=== PATIENT | female | born 1990 | race Caucasian/White ===

== ENCOUNTER → 2020-08-24 15:06 | Outpatient (CLI) | payer OTHER, SELFPAY ==
--- NOTE | ~2020-08-24 | US_ITS ---
EXAMINATION: US OB transvaginal DATE: 08/24/2020 15:37 INDICATION: Early . TECHNIQUE: Real-time transvaginal pelvic ultrasound was performed. COMPARISON: None. FINDINGS: The uterus measures 9.6 x 4.4 x 5.0 cm. There is an intrauterine gestational sac. A yolk sac is ident ified. The crown rump length measures 4 mm, which correlates with an estimated gestational age of 6 weeks and 1 day(s) (+/-) 4 day(s). heart motion is identified measuring 114 beats per min [place] (bpm) by M-mode Doppler. The ovaries are not visualized. There is no free fluid in the pelvis. IMPRESSION: 1. Single living intrauterine gestation with estimated date of delivery of 04/18/2021. Reviewed, dictated and finalized at location A. IMPRESSION: 1. Single living intrauterine gestation with estimated date of delivery of .
== END ==
PROVIDERS: Visit Provider Obstetrics & Gynecology
DX: Z31.83 Encounter for assisted reproductive fertility procedure cycle (principal)
CPT/HCPCS: 76817

== ENCOUNTER → 2020-11-23 10:24 | Outpatient (CLI) | payer OTHER, SELFPAY ==
--- NOTE | ~2020-11-23 | US_ITS ---
EXAMINATION: US OB /maternal detail DATE: 11/23/2020 11:10 INDICATION: Second trimester anatomic survey TECHNIQUE: Real-time ultrasound of the pelvis was performed. COMPARISON: None. FINDINGS: There is a single living fetus in vertex presentation. The placenta is anterior and 4.6 cm from the i nternal cervical os. heart rate is 130 beats per minute (bpm). cardiac activity and feta l movement are noted. The amniotic fluid index is subjectively normal. There is incomplete evaluation of the heart and kidneys. The following anatomy was identi fied as normal: 3 vessel cord cord insertion urinary bladder stomach spine diaphragm ventricles cisterna magna cerebellum The following biometric data were obtained: Biparietal diameter (BPD): 4.3 cm; head circumference (HC): 15.9 cm; abdominal circumference (AC): 13 .4 cm; femur length (FL): 2.9 cm. These measurements are concordant. Estimated weight is 271 g +/- 40 g, which correlates with the 40th percentile when 04/18/2021 i s used as estimated date of delivery. As single measurements, these parameters are each equal to the following estimated gestational ages w ith ranges of +/- 2 standard deviations: BPD: 19 weeks 1 days ( 17 weeks 3 days - 20 weeks 6 days). HC: 18 weeks 6 days ( 17 weeks 2 days - 20 weeks 2 days). AC: 19 weeks 0 days ( 16 weeks 6 days - 21 weeks 0 days). FL: 19 weeks 1 days ( 17 weeks 3 days - 21 weeks 0 days). estimated gestational age based solely on measurements from this exam is 19 weeks 0 days +/- 1 weeks 2 days. IMPRESSION: 1. Single living fetus in transverse lie. 2. Estimated weight is 271 g +/- 40 g, which correlates with the 40th percentile when is used as estimated date of delivery. 3. Incomplete evaluation of the heart and kidneys. Reviewed, dictated and finalized at location B. IMPRESSION: 1. Single living fetus in transverse lie. 2. Estimated weight is 271 g +/- 40 g, which correlates with the 40th per centile when 04/18/2021 is used as estimated date of delivery. 3. Incomplete evaluation of the heart and kidneys.
== END ==
PROVIDERS: Visit Provider Obstetrics & Gynecology
DX: Z36.9 Encounter for antenatal screening, unspecified (principal); Z3A.19 19 weeks gestation of pregnancy
CPT/HCPCS: 76805

== ENCOUNTER → 2021-01-20 13:47 | Outpatient (CLI) | payer OTHER, SELFPAY ==
--- NOTE | ~2021-01-20 | US_ITS ---
EXAMINATION: US OB follow up DATE: 01/20/2021 14:15 INDICATION: Incomplete anatomy scan, now at the junction of the second third trimester pregnanc y TECHNIQUE: Real-time ultrasound of the pelvis was performed. The interpreting radiologist was not pre sent for the study. COMPARISON: 11/23/2020 FINDINGS: There is a single living fetus in vertex presentation. The placenta is anterior with caudal margin 9 .6 cm from the internal cervical os. heart rate is 139 beats per minute (bpm). The amniotic flu id index is 11.3 cm, which is normal (5th%-95%: 9.5-22.6 cm at 27 weeks estimated gestational age). The heart including four-chamber view and left and right ventricular outflow tracts are normal. Normal kidneys with no hydronephrosis. The following biometric data were obtained: BPD: 6.9 cm -> 27 weeks 6 days Head circumference: 26.2 cm -> 28 weeks 3 days Abdominal circumference: 23.1 cm -> 27 weeks 4 days Femur length: 5.2 cm -> 27 weeks 4 days These measurements are concordant. Head circumference to abdominal circumference ratio: 1.13 (normal range 1.02-1.22). Estimated weight: 1096 g (+/-) 164 g or 2 lbs. 7 oz. (+/-) 6 oz. IMPRESSION: 1. Single living fetus in vertex presentation with heart rate of 139 bpm. 2. Normal amniotic fluid index of 11.3 cm. 3. Estimated weight is 43rd percentile by Hadlock criteria when 04/18/2021 is used as the estim ated date of delivery ([facility]). Please correlate with clinical information or earlier ultrasounds for mo st accurate LOUIS. 4. Normal heart and kidneys. Reviewed, dictated and finalized at location B. IMPRESSION: 1. Single living fetus in vertex presentation with heart rate of 139 bpm. 2. Normal amniotic fluid index of 11.3 cm. 3. Estimated weight is 43rd percentile by Hadlock criteria when 1 is used as the estimated date of delivery ([facility]). Please correlate with clinic al information or earlier ultrasounds for most accurate LOUIS. 4. Normal heart and kidneys.
== END ==
PROVIDERS: Visit Provider Obstetrics & Gynecology
DX: Z36.2 Encounter for other antenatal screening follow-up (principal)
CPT/HCPCS: 76816

== ENCOUNTER → 2021-02-22 13:45 | Outpatient (CLI) | payer OTHER, SELFPAY ==
--- NOTE | ~2021-02-22 | US_ITS ---
EXAMINATION: US OB follow up DATE: 02/22/2021 14:06 INDICATION: Size greater than dates during third trimester TECHNIQUE: Real-time ultrasound of the pelvis was performed. The interpreting radiologist was not pre sent for the study. COMPARISON: 01/20/2021 FINDINGS: There is a single living fetus in vertex presentation. The placenta is fundal/anterior. Fet al cardiac activity and movement are noted. heart rate is 136 beats per minute (bpm). The amniotic fluid index is 13.2 cm which is normal. The following biometric data were obtained: Biparietal diameter (BPD): 8.0 cm; head circumference (HC): 29.6 cm; abdominal circumference (AC): 28 .1 cm; femur length (FL): 6.1 cm. These measurements are concordant. Estimated weight is 1905 g +/- 285 g, which correlates with the 38th percentile when 04/18/2021 is used as estimated date of delivery. As single measurements, these parameters are each equal to the following estimated gestational ages w ith ranges of +/- 2 standard deviations: BPD: 32 weeks 1 days ( 29 weeks 1 days - 35 weeks 2 days). HC: 32 weeks 6 days ( 29 weeks 6 days - 35 weeks 6 days). AC: 32 weeks 1 days ( 29 weeks 2 days - 35 weeks 1 days). FL: 31 weeks 5 days ( 28 weeks 5 days - 34 weeks 4 days). estimated gestational age based solely on measurements from this exam is 32 weeks 2 days +/- 2 weeks 2 days. IMPRESSION: 1. Single living fetus in vertex presentation. 2. Estimated weight is 1905 g +/- 285 g, which correlates with the 38th percentile when 021 is used as estimated date of delivery. Reviewed, dictated and finalized at location A. IMPRESSION: 1. Single living fetus in vertex presentation. 2. Estimated weight is 1905 g +/- 285 g, which correlates with the 38th p ercentile when 04/18/2021 is used as estimated date of delivery.
== END ==
PROVIDERS: Visit Provider Obstetrics & Gynecology Gynecology
DX: Z36.9 Encounter for antenatal screening, unspecified (principal); Z3A.32 32 weeks gestation of pregnancy
CPT/HCPCS: 76816

== ENCOUNTER 2021-03-23 15:50 | Outpatient (CLI) | payer OTHER, SELFPAY ==
[2021-03-23 16:20] VITALS: BP 115/76; PULSE 85
[2021-03-23 16:31] VITALS: BP 114/72; PULSE 89
[2021-03-23 16:40] LABS: Basophils Percent Auto 0.3 % (0.2-1.2); Eosinophils Absolute Auto 0.1 K/mm3 (0-0.3); Eosinophils Percent Auto 0.7 % (0-4.4); Hematocrit 35.6 % (37.0-47.0); Hemoglobin 11.9 g/dL (12.0-15.0); Immature Granulocyte Absolute 0.03 K/mm3 (0.00-0.031); Immature Granulocyte Percent A 0.3 % (0-0.5); Lymphocytes Absolute Auto 1.51 K/mm3 (0.9-3.2); Lymphocytes Percent Auto 13.7 % (18.3-44.2); Mean Corpuscular HGB Conc 33.4 g/dl (32-36); Mean Corpuscular Hemoglobin 27.4 pg (26-34); Mean Corpuscular Volume 81.8 fl (80-100); Mean Platelet Volume 9.8 fl (7.4-10.4); Monocytes Absolute Auto 0.7 K/mm3 (0.1-0.6); Neutrophils Absolute Auto 8.7 K/mm3 (1.3-6.7); Platelet Count Result 281 k/mm3 (150-375); Red Blood Count 4.35 M/mm3 (4.2-5.4); Red Cell Distribution Width 13.3 % (11.5-14.5)
[2021-03-23 16:45] LABS: Add Urine Microscopic? YES; Appearance Urine Cloudy (Clear); Bilirubin Urine Negative (Negative); Blood Urine Negative (Negative); Color Urine Amber (Yellow); Glucose Urine UA Negative (Negative); Ketones Urine Negative (Negative); Leukocyte Esterase Ur Trace LEU/UL (NEGATIVE); Mucus Urine Rare /lpf; Nitrate Urine Negative (Negative); Protein Urine 1+ mg/dL (Negative); Specific Grav Ur 1.027 (1.001-1.035); Squamous Epithelial Cell Urine Few /hpf (Few); WBC Urine 0-3 /hpf (0-3)
[2021-03-23 16:46] VITALS: BP 116/76; PULSE 84
[2021-03-23 16:50] VITALS: BP 116/76; PULSE 84
[2021-03-23 16:57] LABS: Alanine Aminotransferase 40 U/L (4-35); Albumin Level 3.6 g/dL (3.5-5.1); Alkaline Phosphatase 237 U/L (38-126); Anion Gap 8 mmol/L (8-16); Aspartate Amino Transferase 33 U/L (14-36); Bilirubin,Total 0.3 mg/dL (0.2-1.3); Blood Urea Nitrogen 7 mg/dL (7-17); Calcium 9.1 mg/dL (8.4-10.2); Carbon Dioxide 21 mmol/L (22-30); Chloride 107 mmol/L (98-107); Estimated Glomerular Filt Rate > 60; Glucose 91 mg/dL (65-110); Potassium 3.9 mmol/L (3.4-5.0); Sodium 136 mmol/L (137-145); Uric Acid 5.6 mg/dL (2.5-7.5)
[2021-03-23 16:59] LABS: Creatinine Urine 263.3 mg/dL; Total Protein Urine Random 6 mg/dL; Ur Ttl Prot Creatinine Ratio 0.02 mg/mg (0-0.20)
[2021-03-23 17:01] VITALS: BP 111/87; PULSE 83
[2021-03-23 17:16] VITALS: BP 114/79; PULSE 85
[2021-03-24 19:45] LABS: Total Protein Urine Random 9 mg/dL
[2021-03-24 20:12] LABS: Total Protein Urine 24 Hr 81 mg/24hr (28-141); Total Volume 24 Hour Urine 900 ml
[2021-03-24 20:36] LABS: Total Volume 24 Hour Urine 900 ml
[2021-03-24 21:52] LABS: Creatinine 24 Hour Urine 1.6 gm/24 (0.8-1.8); Creatinine Urine 181.8 mg/dL
== END 2021-03-23 18:00 | disposition home or self-care (01) ==
LOC: ANHOBOP 16:04 → ANHOBPP 16:04
PROVIDERS: Visit Provider Obstetrics & Gynecology
DX: O13.9 Gestational [pregnancy-induced] hypertension without significant proteinuria, unspecified trimester (principal); Z3A.00 Weeks of gestation of pregnancy not specified
CPT/HCPCS: 36415; 59025; 80053; 81001; 81050; 82570; 84156; 84550; 85025; 87077; 87086; 87088; 99199

== ENCOUNTER → 2021-03-24 13:49 | Outpatient (CLI) | payer OTHER, SELFPAY ==
--- NOTE | ~2021-03-24 | US_ITS ---
EXAMINATION: US OB follow up EXAM DATE: 03/24/2021 14:12 INDICATION: Size Greater Than Dates. 3rd trimester. TECHNIQUE: Pelvic obstetrical transabdominal sonogram was performed by a technologist. There are mu ltiple grayscale and Doppler images available for interpretation. Comparison is made to prior examina tion from 02/22/2021. FINDINGS: There is a single fetus identified in vertex presentation with a heart rate of 151 beats pe r minute. The placenta is located in the anterior fundal position. There is no sonographic evidence of retroplacental hemorrhage identified. AMNIOTIC FLUID INDEX Quadrant 1: 2.4 cm Quadrant 2: 0.0 cm Quadrant 3: 0.0 cm Quadrant 4: 3.7 cm Amniotic fluid index: 6.1 cm. Oligohydramnios. (The 5th -- 95th percentile range is 7.7-24.9). On prior study 02/22, the EDILBERTO was 13.2 cm. BIOMETRIC DATA: Biparietal diameter (BPD): 8.8 cm ----------------> 35 weeks 5 days. Head circumference (HC): 32.8 cm ----------------> 37 weeks 2 days. Abdominal circumference (AC): 32.5 cm ----------> 36 weeks 3 days. Femur length (FL): 7.3 cm --------------------------> 37 weeks 3 days. These measurements are concordant. HC/AC ratio is 1.01 (The 5th -- 95th percentile range is 0.92-1.06. Estimated weight is 3001 g +/- 450 g. This is the 60th percentile when the currently reported clinical gestation age 36 weeks 3 days, clinical estimated date of delivery ([facility]) 04/18 is used. estimated gestational age based on measurements from this exam is 36 weeks 5 days, with an augusta mated date of delivery ([facility]) 04/16. IMPRESSION: 1. Single fetus in vertex presentation with heart rate 151 beats per minute. 2. Estimated weight of 3001 grams, 60th percentile using the currently reported clinical gesta tion age of 36 weeks 3 days, LOUIS(OPE) 04/18. 3. Oligohydramnios, EDILBERTO 6.1 cm (was 13.2 cm last month). Reviewed, dictated and finalized at location B. IMPRESSION: 1. Single fetus in vertex presentation with heart rate 151 beats per minute. 2. Estimated weight of 3001 grams, 60th percentile using the currently r eported clinical gestation age of 36 weeks 3 days, L[facility]IS([facility]) 04/18. 3. Oligohydramnios, EDILBERTO 6.1 cm (was 13.2 cm last month).
== END ==
PROVIDERS: Visit Provider Nurse Practitioner
DX: O36.63X0 Maternal care for excessive fetal growth, third trimester, not applicable or unspecified (principal); Z3A.36 36 weeks gestation of pregnancy
CPT/HCPCS: 76816

== ENCOUNTER → 2021-03-26 10:47 | Outpatient (CLI) | payer OTHER, SELFPAY ==
--- NOTE | ~2021-03-26 | US_ITS ---
EXAMINATION: US OB limited EXAM DATE: 03/26/2021 11:13 INDICATION: Oligohydramnios, third trimester, not applicable or unspecified . TECHNIQUE: Pelvic obstetrical transabdominal sonogram was performed by a technologist. There are mu ltiple grayscale and Doppler images available for interpretation. Comparison is made to prior examina tion from 03/24/2021. FINDINGS: There is a single fetus identified in vertex presentation with a heart rate of 127 beats pe r minute. The placenta is located in the anterior position. There is no sonographic evidence of retr oplacental hemorrhage identified. AMNIOTIC FLUID INDEX: Obtained twice. Quadrant 1: 3.3 cm Quadrant 2: 0.0 cm Quadrant 3: 4.2 cm Quadrant 4: 1.3 cm Amniotic fluid index: 8.8 cm. Quadrant 1: 3.0 cm Quadrant 2: 0.0 cm Quadrant 3: 3.8 cm Quadrant 4: 2.1 cm Amniotic fluid index: 8.9 cm. (The 5th -- 95th percentile range is 7.7-24.9). IMPRESSION: 1. Single fetus in vertex presentation with heart rate 127 beats per minute. 2. EDILBERTO lower limits of normal at 8.85 centimeters. Reviewed, dictated and finalized at location B.
== END ==
PROVIDERS: Visit Provider Obstetrics & Gynecology
DX: O41.03X0 Oligohydramnios, third trimester, not applicable or unspecified (principal); Z3A.00 Weeks of gestation of pregnancy not specified
CPT/HCPCS: 76815

== ENCOUNTER → 2021-04-01 14:18 | Outpatient (CLI) | payer OTHER, SELFPAY ==
--- NOTE | ~2021-04-01 | US_ITS ---
US OB follow up DATE: 04/01/2021 14:59 INDICATION: Oligohydramnios TECHNIQUE: Real-time imaging and Doppler analysis COMPARISON: None FINDINGS: Live banegas intrauterine gestation, fetus in vertex presentation. movement was doc umented. heart rate of 132 bpm. Anterior placenta, no evidence of placenta previa. Amniotic fluid index measures 9.1 cm. 5th percentile EDILBERTO is 7.5 cm. 95th percentile EDILBERTO is 24.4 cm. Biparietal diameter 8.92 cm; 36 weeks 1 day Head circumference 32.35 cm; 36 weeks 4 days Abdominal circumference 33.70 cm; 37 weeks 4 days Femur length 7.04 cm; 36 weeks 1 day Composite age by [place] formula based upon the current biometrics would be 36 weeks 4 days +/- 2 we eks 4 days with LOUIS of 04/25/2021. (Third trimester ultrasound estimates of gestational age and not o ptimally accurate and should not alter and established gestational age from a lateral left menstrual period or first or second trimester ultrasound estimate.) LOUIS based upon the 08/24/2020 first trimester obstetrical ultrasound examination was 04/18/2021. Estimated weight is 3076 +/- 461 g. Femur length/BPD 78.86, within normal range of 71.0-87.0 Head circumference/abdominal circumference 0.96, within normal range of 0.9 to-1.06 Femur length/abdominal circumference 20.88, within normal range of 20.00-24.00 Femur length/head circumference 21.75, within normal range of 20.50-22.39. IMPRESSION: Low normal amniotic fluid volume; EDILBERTO measures 9.1 cm, slightly above the 5th percentile Reviewed, dictated and finalized at Location A. Reviewed, dictated and finalized at location A. IMPRESSION: Low normal amniotic fluid volume; EDILBERTO measures 9.1 cm, slightly abo ve the 5th percentile
== END ==
PROVIDERS: Visit Provider Obstetrics & Gynecology
DX: O41.03X0 Oligohydramnios, third trimester, not applicable or unspecified (principal); Z3A.36 36 weeks gestation of pregnancy
CPT/HCPCS: 76816

== ENCOUNTER 2021-04-12 04:48 | Inpatient (IN) | payer OTHER, SELFPAY ==
[2021-04-12] VITALS (78 sets, daily range): BP systolic 74–144; BP diastolic 46–112; PULSE 62–178; RESP 18; TEMP 36.2–37.2; O2SAT 98–100; BMI 44.8
[2021-04-12] MEDS: LACTATED RINGERS 1,000 ML 125 ML IV CONT ×3 (05:35→12:26)
[2021-04-12] MEDS: OXYTOCIN 30 UNITS/NS 500 ML 30 UNITS/500 ML BAG IV CONT (05:36)
[2021-04-12] MEDS: ceFAZolin 2 GM/D5W 50 ML 2 GM/50 ML BAG IVPB (05:37)
[2021-04-12 05:44] LABS: Glucose Point of Care 74 mg/dl (65-105)
[2021-04-12 05:49] LABS: Basophils Percent Auto 0.4 % (0.2-1.2); Eosinophils Absolute Auto 0.1 K/mm3 (0-0.3); Eosinophils Percent Auto 1.3 % (0-4.4); Hematocrit 35.2 % (37.0-47.0); Hemoglobin 11.8 g/dL (12.0-15.0); Immature Granulocyte Absolute 0.03 K/mm3 (0.00-0.031); Immature Granulocyte Percent A 0.3 % (0-0.5); Lymphocytes Absolute Auto 1.97 K/mm3 (0.9-3.2); Lymphocytes Percent Auto 19.7 % (18.3-44.2); Mean Corpuscular HGB Conc 33.5 g/dl (32-36); Mean Corpuscular Hemoglobin 26.8 pg (26-34); Mean Platelet Volume 9.9 fl (7.4-10.4); Monocytes Absolute Auto 0.6 K/mm3 (0.1-0.6); Monocytes Percent Auto 5.5 % (2.6-8.5); Neutrophils Absolute Auto 7.3 K/mm3 (1.3-6.7); Neutrophils Percent Auto 72.8 % (45.5-73.1); Platelet Count Result 280 k/mm3 (150-375); Red Cell Distribution Width 13.4 % (11.5-14.5)
[2021-04-12] MEDS: ONDANSETRON INJ 4 MG/2 ML VIAL IV PUSH ×2 (05:52→13:40)
--- NOTE | 2021-04-12 06:19 | LDADM ---
This patient, Chloe Alicea, was admitted to Labor/Delivery/Recovery 102 on 04/12/21 at 04:48. Plans for labor, pain management and were discussed with patient. Patient/family oriented to hospital policies and general routines including ID bracelet, bed and alarms, visiting hours, pain management, procedures, bathroom and other care routines, personal items, smoking policy, room service/diet and guest tray routines, infant security routines, and visiting hours. Patient/Family are encouraged to report perceived risks to care and to ask questions if they do not understand what they are told or what they should do. See OBIX for further documentation.
--- NOTE | 2021-04-12 08:46 | WPDOBADMIT ---
Obstetrics - Admit Note Admission Note: record reviewed. No pertinent additions to the history and/or any subsequent changes in the physical findings that are not consistent with the expected course of the were found. Additions to the history and/or subsequent changes in the physical findings follow. None.Admitted per Dr. Bishop. Requested I AROM. Cervix /-2 anterior. AROM with clear fluid. FHTs reactive.
[2021-04-12 09:48] LABS: Glucose Point of Care 87 mg/dl (65-105)
--- NOTE | 2021-04-12 10:09 | WPDANESEPP ---
Anes - Eval Pre Procedure Procedure: labor pain management Date/Time: 04/12/21 10:09 Surgeon: anna Preop Diagnosis: pain during labor Pre Op Diagnosis: Induction Patient Data Age: 30 Gender: F Height: 1.68 m Weight: 126 kg Last Vital Signs Temp 97.2 F L 04/12/21 06:10 Pulse 84 04/12/21 10:01 BP 144/96 H 04/12/21 10:01 Allergies Allergy/AdvReac Type Severity Reaction Status Date / Time amoxicillin Allergy Intermediate Rash, Verified 03/23/21 15:28 swelling Laboratory Tests 04/12/21 04/12/21 04/12/21 05:17 05:17 05:17 WBC 10.0 K/mm3 K/mm3 (4.5-10.0) RBC 4.40 M/mm3 M/mm3 (4.2-5.4) Hgb 11.8 g/dL L g/dL (12.0-15.0) Hct 35.2 % L % (37.0-47.0) MCV 80.0 fl fl (80-100) MCH 26.8 pg pg (26-34) MCHC 33.5 g/dl g/dl (32-36) RDW 13.4 % % (11.5-14.5) Plt Count 280 k/mm3 k/mm3 (150-375) MPV 9.9 fl fl (7.4-10.4) Immature Gran % (Auto) 0.3 % % (0-0.5) Neut % (Auto) 72.8 % % (45.5-73.1) Lymph % (Auto) 19.7 % % (18.3-44.2) Cowley % (Auto) 5.5 % % (2.6-8.5) Eos % (Auto) 1.3 % % (0-4.4) Baso % (Auto) 0.4 % % (0.2-1.2) Lymph # (Auto) 1.97 K/mm3 K/mm3 (0.9-3.2) Cowley # (Auto) 0.6 K/mm3 K/mm3 (0.1-0.6) Eos # (Auto) 0.1 K/mm3 K/mm3 (0-0.3) Baso # (Auto) 0.0 K/mm3 K/mm3 (0.0-0.1) Abs Immat Gran (auto) 0.03 K/mm3 K/mm3 (0.00-0.031) Absolute Neuts (auto) 7.3 K/mm3 H K/mm3 (1.3-6.7) Absolute Nucleated RBC 0.0 K/mm3 K/mm3 (0.0-0.012) Nucleated RBC % 0.0 % % (0.0-0.2) POC Capillary Glucose RPR Pending Blood Type O Positive Antibody Screen Negative 04/12/21 04/12/21 05:40 09:39 WBC RBC Hgb Hct MCV MCH MCHC RDW Plt Count MPV Immature Gran % (Auto) Neut % (Auto) Lymph % (Auto) Cowley % (Auto) Eos % (Auto) Baso % (Auto) Lymph # (Auto) Cowley # (Auto) Eos # (Auto) Baso # (Auto) Abs Immat Gran (auto) Absolute Neuts (auto) Absolute Nucleated RBC Nucleated RBC % POC Capillary Glucose 74 mg/dl mg/dl 87 mg/dl mg/dl (65-105) (65-105) RPR Blood Type Antibody Screen : gestational age (edc 04/18/21) Patient hx anesthesia problems: none Family hx anesthesia problems: none Results Review: All pre-operative results and documents have been reviewed as part of the pre-operative evaluation. [facility] Family History Family History Mother Diabetes mellitus Father Hypertension Social History Social History Smoking status: Never smoker Second hand tobacco smoke exposure: No Substance use: never Spiritual care concerns: No Exam Day of Procedure 04/12/21 10:09 Patient weight: morbidly obese (bmi 44.8) Neurological: alert and oriented
[2021-04-12 10:11] LABS: Rapid Plasma Reagin Non-Reactive (NonReactive)
[2021-04-12 13:48] LABS: Glucose Point of Care 83 mg/dl (65-105)
[2021-04-12] MEDS: OXYTOCIN 30 UNITS/NS 500 ML 30 UNITS/500 ML BAG 125 UNITS IV CONT (16:01)
[2021-04-12] MEDS: WITCH HAZEL 40 PADS 1 PAD TOPICAL (17:45)
[2021-04-12] MEDS: BENZOCAINE 20% AER SPR (*SP) 56 GM CAN 1 SPRAY TOPICAL (17:45)
--- NOTE | 2021-04-12 18:10 | PC.NURSE ---
Patient transferred to post room #292 per wheelchair. Support person present. Oriented to unit, room, information board, rooming in, admission packet and security measures. Patient verbalizes understanding.
[2021-04-12] MEDS: ACETAMINOPHEN 325 MG TABLET 650 MG PO (19:58)
[2021-04-13 03:23] VITALS: BP 107/76; PULSE 85; RESP 18; TEMP 36.4
[2021-04-13 03:34] LABS: Hematocrit 31.1 % (37.0-47.0); Hemoglobin 10.3 g/dL (12.0-15.0)
--- NOTE | 2021-04-13 07:47 | PM.OBPNVD ---
OB - PN: Subj Subjective Date/time seen: 04/13/21 07:47 Patient comments: no complaints and pain well controlled baby status: doing well OB - PN: Obj Data Labs CBC & Chem 7: 04/13/21 03:00 Labs: Laboratory Results - last 24 hr 04/12/21 04/12/21 04/12/21 05:17 09:39 13:46 Hgb Hct POC Capillary Glucose 87 83 RPR Non-reactive 04/13/21 03:00 Hgb 10.3 L Hct 31.1 L POC Capillary Glucose RPR OB - PN A/P Plan day: 1 Plan: routine care, discharge home, follow up 6 weeks and other (unsure bc) Time Spent With Patient Time: Total time spent is greater than 50% in coordination of care (as documented) at patient's floor/unit and/or counseling patient: Exam : Bimanual exam- vagina & uterus: other (Uterus firm, nt @U)
[2021-04-13] MEDS: ACETAMINOPHEN 325 MG TABLET 650 MG PO ×2 (07:58→20:20)
[2021-04-13] MEDS: DOCUSATE SODIUM 100 MG CAPSULE PO (07:59)
[2021-04-13] MEDS: MULTIVIT/MIN/PREN/FOL AC/IRON TABLET 1 TAB PO (07:59)
[2021-04-13 08:55] VITALS: BP 125/74; PULSE 84; RESP 16; TEMP 36.4; O2SAT 99
--- NOTE | 2021-04-13 08:58 | WPDANLDPN2 ---
Anes-Prog Note L&D Date/Time: 04/13/21 08:58 Comfortable throughout: labor and delivery Neuraxial method: epidural Epidural/Spinal procedure site: clean & non-tender Neuro status: Neuro function grossly intact. Cardiovascular status: normal Respiratory status: normal Airway patency: baseline Mental status: baseline Post-Op hydration status: normal Vital Signs: Last Vital Signs Temp 97.6 F 04/13/21 03:23 Pulse 85 04/13/21 03:23 Resp 18 04/13/21 03:23 BP 107/76 04/13/21 03:23 Pulse Ox 100 04/12/21 11:02 Pain score (VAS): 2 I/O: Intake & Output 04/12/21 04/13/21 04/13/21 23:59 07:59 15:59 Intake Total 500 Output Total 95 Balance 405 Post-procedural complaints: none Patient feedback: Patient satisfied with anesthetic care.
--- NOTE | 2021-04-13 09:35 | PC.NURSE ---
Mother called out for assist with feeding, reporting discomfort with feeding more on left than right. Infant is able to freely thrust tongue past gum ridge and flange both lips. Skin is intact on both nipples, no redness and bruising noted. Reviewed feeding cues, frequencies, duration of feedings, feeding elimination flow sheet, and signs of adequate intake. Demonstrated stimulation techniques to wake for feeding. Assisted with to breast. Reviewed positioning/alignment in cross cradle, holding breast in ?U? hold and guided asymmetrical latch on. Reviewed rational for each. able to latch correctly within a few attempts. Infant nursed eagerly with steady draws and occasional swallowing noted, some pausing noted. Reviewed signs of a correct latch, effective nursing and suck swallow ratio. Suggested mother stimulate while feeding to increase stimulation for milk supply, for increased intake and to assist with maintaining deep latch. would slip to shallow latch causing tenderness. Demonstrated how to adjust latch more deeply while feeding as needed. Mother reports she can feel the difference in latch with no tenderness. Nipple care reviewed of lanolin after feedings, warm compresses as needed. Instructed mother to call out for RN assistance if she is unable to latch infant for feeding or she has discomfort with nursing. Instructed feeding should be initiated three hours from start of last feeding or if feeding cues are noted before. Mother voiced understanding of information shared.
[2021-04-13 12:23] VITALS: BP 111/73; PULSE 92; RESP 18; TEMP 36.4; O2SAT 97
--- NOTE | 2021-04-13 12:30 | PC.NURSE ---
Mother called out for assist with feeding, reporting discomfort with feeding more on left than right. Assisted with to breast. Reviewed positioning/alignment in cross cradle, holding breast in ?U? hold and guided asymmetrical latch on. Reviewed rational for each. Infant able to latch correctly within a few attempts. Infant nursed eagerly with steady draws and occasional swallowing noted, some pausing noted. Reviewed signs of a correct latch, effective nursing and suck swallow ratio. Suggested mother stimulate while feeding to increase stimulation for milk supply, for increased intake and to assist with maintaining deep latch. would slip to shallow latch causing tenderness. Demonstrated how to adjust latch more deeply while feeding as needed. Mother reports she can feel the difference in latch with no tenderness. Nipple care reviewed of lanolin after feedings, warm compresses as needed. Instructed mother to call out for RN assistance if she is unable to latch for feeding or she has discomfort with nursing. Instructed feeding should be initiated three hours from start of last feeding or if feeding cues are noted before. Mother voiced understanding of information shared.
[2021-04-13 20:10] VITALS: BP 119/81; PULSE 80; RESP 16; TEMP 36.8; O2SAT 97
[2021-04-14 07:00] VITALS: BP 124/90; PULSE 82; RESP 16; TEMP 36.3; O2SAT 97
--- NOTE | 2021-04-14 09:15 | PC.NURSE ---
Consult with pt., observed mother is able to independently latch with appropriate positioning/alignment. Infant eagerly latches on first attempt with long rhythmical draws and frequent swallowing noted. She denies any nipple discomfort, is feeding as required and waking infant to feed if needed. Mother reports it takes a few attempts to latch to left breast, assured mother this is normal the first few days and should resolve by 1 week. Suggested mother roll at nipple before latching and to attempt different positions. has had at least 8 effective feedings in the past 24 hours, and is currently meeting outcomes for weight, output, jaundice and feeding frequencies. Mother states she feels confident to continue effective at home. Reviewed transition to breast milk, signs of adequate intake, and engorgement/relief. Instructed to call ICP if intake/output less than required. Reviewed regular medications mother is taking. Information provided per Cristina. Reviewed community resources on the [facility] website and in the Mom/Baby guide. Information on outpatient services provided. Mother has no further questions at this time. Instructed feeding should be initiated three hours from start of last feeding or if feeding cues are noted before until seen by ICP. Mother voiced understanding of information shared.
--- NOTE | 2021-04-14 10:32 | P.PNOB_ITS ---
OB - PN: Subj Subjective Date/time seen: 04/14/21 10:32 doing well no complaints desires home OB - PN: Obj Data Labs CBC & Chem 7: 04/13/21 03:00 OB - PN A/P Assessment and Plan (1) (normal spontaneous vaginal delivery): Code(s): O80 - Encounter for full-term uncomplicated delivery Status: Acute Assessment and Plan: d/c home Time Spent With Patient Time: Total time spent is greater than 50% in coordination of care (as documente d) at patient's floor/unit and/or counseling patient: Exam Narrative: ff below umbilicus
[2021-04-15 11:23] VITALS: BP 124/77; PULSE 87; RESP 20; TEMP 36.9; O2SAT 100
--- NOTE | 2021-04-24 17:09 | PM.OBPRVD ---
OB - Delivery Note Procedure Delivery date: 04/12/21 Procedure: events: Labor Induction Intrapartal events: None Induction method: AROM and per pitocin protocol Delivery monitor: external FHT and external uterine Route of delivery: Laceration Description: Perineal - 2nd Degree Delivery repair: vicryl Specimen: Yes Quantitative Blood Loss (ml): 150 Anesthesia type: Epidural Disposition: floor Baby Date of : 04/12/21 Time of : 15:25 Weeks of gestation at delivery: 39 gender: Male Weight (pounds): 7 Weight (ounces): 12 presentation: vertex position: Left Occiput Anterior Placenta delivery description: Spontaneous cord vessel description: 3 Vessels score one minute: 8 score five minutes: 9
--- NOTE | 2021-04-24 17:12 | PM.OBDSVD ---
DS: Admitting Diagnosis Discharge Date 04/14/21 Admitting Diagnosis induction of labor OB - DS: Summary OB Procedures : Ultrasound OB Procedures Intrapartum: Spontaneous Vag Delivery OB Procedures: : None Time Spent with Patient Time attestation: Total time spent providing and/or coordinating discharge services: DS: Data Data Completed and Pending Completed studies during hospitalization: Pending at discharge 04/12/21 15:29 Surgical [PTH] Routine Discharge Plan Discharge Attending physician on discharge: Anil Bishop Discharging Clinician: Anil Bishop Patient Disposition: Home, Self-Care Activity: may shower and pelvic rest Diet: regular Discharge Instructions: Education: Mom and Baby Guide Given to: Mother Follow-Up: Call your delivering provider's office for an appointment to be seen in: 6 Weeks Mom and baby should come to the [facility] for the follow-up appointment. Appointment Date/Time: April 15, 2021 at 11:00 am What to expect at your follow-up visit: Blood Pressure Check Physical Assessment Call [phone] if you are unable to keep your appointment time. BREAST CARE: * Wear a snug supportive bra. * For engorgement discomfort: Breast Feeding: * Apply warm moist washcloths * Express milk as needed to relieve engorgement * Wear loose clothing Bottle Feeding: * May apply ice packs * For sore nipples: * Identify correct latch-on * Apply warm moist washcloths before and after nursing * Air dry nipples after nursing * May apply Lansinoh cream to nipples EPISIOTOMY/PERINEAL CARE: * Until bleeding stops, use your iván bottle after urinating * Change your pad frequently throughout the day * You may take sitz baths several times a day (fill your bathtub with warm water and soak for 20 minutes.) Do NOT bathe in the water * No tub baths until seen by your physician - You may shower ACTIVITY: * Rest as much as possible. * Do not exercise or lift anything heavier than your baby (such as laundry or other children.) * Avoid stairs or driving as much as possible. * Do not put anything into the vagina. No douching, tampons, or sexual activity until seen by physician. NOTIFY PHYSICIAN IF YOU HAVE ANY QUESTIONS OR IF ANY OF THE FOLLOWING SYMPTOMS OCCUR: * If your episiotomy or incision becomes red, swollen, or more painful than what you have experienced in the hospital. * If your vaginal bleeding becomes foul smelling. * If your vaginal bleeding becomes more heavy than a period or if your bleeding changes from pink to bright red. However, you may pass an occasional walnut-sized clot once or twice for the first week . * If you experience a sharp, shooting pain in you calves. * If you discover a hard, reddened area on your breast or if you experience flu-like symptoms. DIET: * Eat regular, well-balanced meals. * Drink plenty of fluids daily. If , drink to thirst. Stand Alone Forms: General Discharge Information Follow-up/Referrals: Anil Bishop MD [Physician] - 6 Weeks Date of admission: 04/12/21 04:48 Primary Care Provider: UNKNOWN,DOCTOR Admitting Provider: Anil Bishop Attending physician on admission: Glory Cook Condition: Stable
== END 2021-04-14 10:12 | disposition home or self-care (01) | DRG 807 ==
LOC: ANHLDR 15:41 → ANHOB2 04-13 07:48 → ANHLDR 04-15 10:33 → ANHOB2 04-15 10:33
PROVIDERS: Admitting Provider Obstetrics & Gynecology; Visit Provider Obstetrics & Gynecology Gynecology
DX: O24.420 Gestational diabetes mellitus in childbirth, diet controlled (principal); Z37.0 Single live birth; O99.824 Streptococcus B carrier state complicating childbirth; O76 Abnormality in fetal heart rate and rhythm complicating labor and delivery; O70.1 Second degree perineal laceration during delivery; Z3A.39 39 weeks gestation of pregnancy
CPT/HCPCS: 36415; 82948; 85014; 85018; 85025; 86592; 86850; 86900; 86901; 88307; A9270; J0690; J2405; J2590; J2795; J7120

== ENCOUNTER 2023-06-22 11:56 | Outpatient (CLI) | payer OTHER, SELFPAY ==
--- NOTE | ~2023-06-22 | US_ITS ---
EXAMINATION: US thyroid DATE: 06/22/2023 12:16 INDICATION: Hyperthyroidism. TECHNIQUE: Multiple ultrasound images of the thyroid were obtained. COMPARISON: None. FINDINGS: The right thyroid lobe measures 4.9 x 1.6 x 2.1 cm. The left thyroid lobe measures 4.3 x 1.4 x 2.0 c m. The thyroid demonstrates heterogeneous echogenicity. No discrete nodule. Vascularity is normal. IMPRESSION: 1. Heterogeneous thyroid, which may be Graves' disease or chronic lymphocytic ([place]) thyroiditis . Reviewed, dictated and finalized at location E. NICAL ASSISTANCE CONSULTANT IMPRESSION: 1. Heterogeneous thyroid, which may be Graves' disease or chronic lymphocytic ( [place]) thyroiditis.
== END 2023-06-22 11:57 | disposition home or self-care (01) ==
LOC: CHSIMG 11:59
PROVIDERS: PCP Registered Nurse; Visit Provider Family Medicine
DX: E05.90 Thyrotoxicosis, unspecified without thyrotoxic crisis or storm (principal)
CPT/HCPCS: 76536